=== PATIENT | female | born 1980 | race Caucasian/White ===

== ENCOUNTER 2016-11-14 09:56 | Emergency (ER) | payer MEDICARE, OTHER ==
[2016-11-14 10:04] VITALS: TEMP 97.9; BMI 33.6
[2016-11-14] MEDS ORDERED: NS 1,000 ML IV ONE (10:10)
[2016-11-14] MEDS ORDERED: ONDANSETRON HCL 4 MG/2 ML VIAL IV ONE (10:12)
[2016-11-14] MEDS ORDERED: MORPHINE 4 MG/ML INJECTION IV ONE (10:12)
--- NOTE | 2016-11-14 10:14 | EDPRACDOC ---
- General Information Chief Complaint: Abdominal Pain Stated Complaint: LOWER LT ABD PAIN Time Seen by Provider: 11/14/16 10:06 Mode Of Arrival: Car Home Medications: Home Medications Cetirizine HCl [Zyrtec] 10 mg PO HS 02/17/14 Pantoprazole Sodium [Protonix] 40 mg PO DAILY 02/17/14 Montelukast Sodium [Singulair] 10 mg PO HS 06/06/15 Budesonide/Formoterol Fumarate [Symbicort 80-4.5 Mcg Inhaler] 2 puff INH BID PRN 02/29/16 Fexofenadine HCl [Demetria] 180 mg PO DAILY 02/29/16 Fluticasone Propionate [Flonase] 2 spray TAMMY DAILY PRN 02/29/16 Ketotifen Fumarate [Wal-Zyr] 1 drop OU BID PRN 02/29/16 Alprazolam [Xanax] 1 mg PO BID PRN 10/26/16 BuPROPion (Daily formulation) [Wellbutrin Xl] 150 mg PO DAILY 10/26/16 Prazosin HCl [Minipress] 5 mg PO HS 10/26/16 Hydrocodone/Acetaminophen [Lortab 5-325 mg Tablet] 1 each PO Q4H PRN #15 tablet 11/14/16 Ibuprofen 600 mg PO Q6H PRN #20 tablet 11/14/16 Methylphenidate HCl [Ritalin] 10 mg PO DAILY 11/14/16 Naproxen [Naprosyn] 500 mg PO BID 11/14/16 Allergies/Adverse Reactions: Allergies Allergy/AdvReac Type Severity Reaction Status Date / Time varenicline tartrate Allergy Intermediate Rash-Genera Verified 11/14/16 10:04 [From Chantix] lized amoxicillin trihydrate Allergy Rash-Genera Verified 11/14/16 10:04 [From Augmentin] lized latex Allergy Rash-Genera Verified 11/14/16 10:04 lized potassium clavulanate Allergy Rash-Genera Verified 11/14/16 10:04 [From Augmentin] lized ADHESIVE TAPE Allergy Rash-Locali Uncoded 11/14/16 10:04 zed - History of Present Illness Onset: TODAY HPI: PT HAS A HX OF A LARGE LEFT OVARIAN CYST WHICH WAS DX'D BY US ON 10/26 HERE. SHE DID F/U WITH HER [facility], BUT HAS NOT YET BEEN ABLE TO GET A F/U US. SHE STILL CONTINUES TO HAVE LLQ ABD PAIN. Pain Location: Reports: LLQ Pain Context: Reports: Spontaneous Pain Severity: Moderate Pain Quality: Reports: Sharp Pain Radiation: Reports: No Radiation : No Control Method: Reports: Hysterectomy Adult Abdominal History: Reports: Abdominal Surgery Female Abdominal History: Reports: Abdominal Surgery Modifying Factors: improves with: Nothing Female Associated Signs & Symptoms: Reports: Nausea Oral Intake: Normal Urinary Output: Normal - Treatment Prior to ED Arrival Reported Medications/Treatment JACKERMAN Medications JACKERMAN (Medication/ [id number] Dose/Time) ED Past Medical History - Patient Medical History Respiratory History: Reports: Asthma (CONTROLLED) GI/ History: Reports: Gastroesophageal Reflux Psychological History: Reports: Anxiety. 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 Denies: Diabetes, Cancer - Social Medical History Smoking Status: Heavy tobacco smoker (5 or more cigarettes/day or daily pipe/ cigar) ETOH: None Substance Abuse: None Lives In: Home EDM Review of Systems - Review of Systems ROS Negative Except as Marked: Yes All systems reviewed and were negative except as marked Gastrointestinal: Nausea, Pain - Physical Exam Constitutional: Alert (Awake), No apparent distress Oriented to: Time, Person, Place Last recorded Vital Signs: Last Vital Signs Temp 97.9 F 11/14/16 10:01 Pulse 60 11/14/16 11:08 Resp 16 11/14/16 11:08 BP 108/69 11/14/16 11:08 Pulse Ox 97 11/14/16 11:08 Oxygen Pulse Oxygen Saturation 97 O2 Device Oxygen Flow Rate Fraction of Inspired Oxygen ( FIO2) - HEENT Head: Normal ( normocephalic) Eye Exam: Normal (PERRL, EOMI, Sclera white) Oropharynx: Normal (Pharynx:Moist without exudate,Gums-no swelling) ENT EAC: Normal TMJ: Normal Nose: No Symptoms Reported (septum midline) Neck: Normal (FROM, trachea at midline) - Respiratory/Cardiovascular Respiratory: Normal - CTA (BBS clear to auscultation without adventitious sounds ) Cardiovascular: Normal (RRR without murmur, gallop or rub) - GI Auscultation: Normal (NABS) Palpation: Normal (Soft,No rebound or guarding, non distended) Tenderness: Mild, LLQ Bejarano's Sign: Negative - Musculoskeletal Back: Normal (Non-Tender) Extremities: Normal (Normal tone, Pulses 2+ No cyanosis or edema, FROM) - Integumentary Skin: Normal, Warm, Dry Lymphatics: Normal (no adenopathy) - Neurologic Memory Impaired: Normal Motor Function: Normal (Normal tone, Pulses 2+ No cyanosis or edema, FROM) Cranial Nerve: Normal (CN II-X11 intact sensation, strength 5/5) Cerebellar: Normal Mood Description: Normal Perception: Normal - Re-evaluation Re-evaluation 1 Re-evaluation Time: 13:16 (improved) - Results 11/14/16 10:30 11/14/16 10:30 WBC 8.8 xk/uL (3.8-10.8) 11/14/16 10:30 RBC 4.28 xM/uL (4.20-5.40) 11/14/16 10:30 Hgb 11.6 g/dL (12.0-16.0) L 11/14/16 10:30 Hct 35.7 % (36-47) L 11/14/16 10:30 MCV 83 fL (81-99) 11/14/16 10:30 MCH 27.1 pg (27-32) 11/14/16 10:30 MCHC 32.6 g/dl (33-36) L 11/14/16 10:30 RDW 14.7 % (11.5-14.5) H 11/14/16 10:30 Plt Count 278 xk/uL (130-400) 11/14/16 10:30 MPV 9.2 fL (7.4-10.4) 11/14/16 10:30 Neut % (Auto) 58.2 % (45-76) 11/14/16 10:30 Lymph % (Auto) 24.2 % (17-44) 11/14/16 10:30 Hardee % (Auto) 8.7 % (3-10) 11/14/16 10:30 Eos % (Auto) 7.8 % (0-5) H 11/14/16 10:30 Baso % (Auto) 1.1 % (0-2) 11/14/16 10:30 Absolute Neuts (auto) 5.10 xk/uL (1.7-8.2) 11/14/16 10:30 Absolute Lymphs (auto) 2.11 xk/uL (0.65-4.75) 11/14/16 10:30 Sodium 141 mEq/L (137-146) 11/14/16 10:30 Potassium 4.2 mEq/L (3.5-5.1) 11/14/16 10:30 Chloride 108 mEq/L (98-107) H 11/14/16 10:30 Carbon Dioxide 25 mMOL/L (22-33) 11/14/16 10:30 Anion Gap 12 mEq/L (8-16) 11/14/16 10:30 BUN 14 MG/DL (7-17) 11/14/16 10:30 Creatinine 0.60 MG/DL (0.52-1.04) 11/14/16 10:30 Estimated GFR (MDRD) > 60 mL/min (>=60) 11/14/16 10:30 Glucose 85 MG/DL (70-99) 11/14/16 10:30 Calculated Osmolality 271 MOs/Kg (270-290) 11/14/16 10:30 Calcium 8.6 MG/DL (8.4-10.2) 11/14/16 10:30 Total Bilirubin 0.5 MG/DL (0.2-1.3) 11/14/16 10:30 AST 25 IU/L (14-36) 11/14/16 10:30 ALT 25 IU/L (9-52) 11/14/16 10:30 Alkaline Phosphatase 62 IU/L (38-126) 11/14/16 10:30 Total Protein 7.2 G/DL (6.3-8.2) 11/14/16 10:30 Albumin 4.0 G/DL (3.5-5.0) 11/14/16 10:30 Urine Color Bright yellow 11/14/16 11:05 Urine Clarity Cldy 11/14/16 11:05 Urine pH 8.0 (5.0-8.0) 11/14/16 11:05 Ur Specific Enochs 1.005 (1.003-1.035) 11/14/16 11:05 Urine Protein 1+ (NEG/TRACE) H 11/14/16 11:05 Urine Glucose (UA) Neg (NEGATIVE) 11/14/16 11:05 Urine Ketones Neg (NEGATIVE) 11/14/16 11:05 Urine Occult Blood Neg (NEG/TRACE) 11/14/16 11:05 Urine Nitrite Neg (NEGATIVE) 11/14/16 11:05 Urine Bilirubin Neg (NEGATIVE) 11/14/16 11:05 Urine Urobilinogen 0.2 MG/DL (0-1) 11/14/16 11:05 Ur Leukocyte Esterase Neg (NEGATIVE) 11/14/16 11:05 Urine RBC 0-2 (0-5) 11/14/16 11:05 Urine WBC 2-5 (0-5) 11/14/16 11:05 Ur Epithelial Cells 2+ 11/14/16 11:05 Amorphous Sediment 2+ 11/14/16 11:05 Urine Bacteria 2+ (NEG/FEW) H 11/14/16 11:05 Lab Results 11/14/16 11/14/16 11/14/16 11:05 10:30 10:30 WBC 8.8 RBC 4.28 Hgb 11.6 L Hct 35.7 L MCV 83 MCH 27.1 MCHC 32.6 L RDW 14.7 H Plt Count 278 MPV 9.2 Neut % (Auto) 58.2 Lymph % (Auto) 24.2 Hardee % (Auto) 8.7 Eos % (Auto) 7.8 H Baso % (Auto) 1.1 Absolute Neuts (auto) 5.10 Absolute Lymphs (auto) 2.11 Sodium 141 Potassium 4.2 Chloride 108 H Carbon Dioxide 25 Anion Gap 12 BUN 14 Creatinine 0.60 Estimated GFR (MDRD) > 60 Glucose 85 Calculated Osmolality 271 Calcium 8.6 Total Bilirubin 0.5 AST 25 ALT 25 Alkaline Phosphatase 62 Total Protein 7.2 Albumin 4.0 Urine Color Bright yellow Urine Clarity Cldy Urine pH 8.0 Ur Specific Enochs 1.005 Urine Protein 1+ H Urine Glucose (UA) Neg Urine Ketones Neg Urine Occult Blood Neg Urine Nitrite Neg Urine Bilirubin Neg Urine Urobilinogen 0.2 Ur Leukocyte Esterase Neg Urine RBC 0-2 Urine WBC 2-5 Ur Epithelial Cells 2+ Amorphous Sediment 2+ Urine Bacteria 2+ H - Diagnostic Imaging Abdomen Image interpreted by: Radiologist 11/14/16 13:15 1. No acute abnormality. 2. Minimal increase in size of a minimally complicated left ovarian cyst, compatible with a minimally hemorrhagic cyst, currently measuring 4.7 cm. - Additional Information PT HAS AN O[facility]. SHE IS GIVEN A COPY OF THE US AND THE REPORT TO TAKE TO HER DR. Decision Time to Discharge: 13:16 - Departure Yes I personally saw and evaluated the patient. Disposition: Home Condition: Fair Final Diagnosis: Left ovarian cyst Instructions: Ovarian Cyst (ED) Education/Counseling Given To: Patient Education/Counseling Given Regarding: Diagnosis, Treatment, Follow Up Referrals: Tess Rios MD [Primary Care Provider] - One Week Prescriptions: Hydrocodone/Acetaminophen [Lortab 5-325 mg Tablet] 1 each PO Q4H PRN #15 tablet PRN Reason: Pain Ibuprofen 600 mg PO Q6H PRN #20 tablet PRN Reason: Pain Additional Instructions: f/u with your obgyn at the [facility].
[2016-11-14 10:50] LABS: AUTOMATED BASOPHIL 1.1 % (0-2); AUTOMATED EOSINOPHIL 7.8 % (0-5); AUTOMATED LYMPH 24.2 % (17-44); AUTOMATED MONOCYTE 8.7 % (3-10); AUTOMATED NEUTROPHIL 58.2 % (45-76); MPV 9.2 fL (7.4-10.4)
[2016-11-14 11:03] LABS: BLOOD UREA NITROGEN 14 MG/DL (7-17); CALCIUM 8.6 MG/DL (8.4-10.2); CALCULATED OSMOLALITY 271 MOs/Kg (270-290); CHLORIDE 108 mEq/L (98-107); GLUCOSE 85 MG/DL (70-99); SODIUM LEVEL 141 mEq/L (137-146); TOTAL PROTEIN 7.2 G/DL (6.3-8.2)
[2016-11-14] MEDS ORDERED: HYDROmorphone 1 MG INJECTION IV ONE (11:23)
[2016-11-14 11:30] LABS: LEUKOCYTES/URINE NEG (NEGATIVE); NITRITE/URINE NEG (NEGATIVE); URINE OCCULT BLOOD NEG (NEG/TRACE)
[2016-11-14 11:39] LABS: AMORPHOUS 2+; RBC/URINE 0-2 (0-5)
--- NOTE | 2016-11-14 13:13 | DIRPT ---
CLINICAL DATA: Left pelvic pain. History of a left ovarian cyst. Previous hysterectomy. EXAM: TRANSABDOMINAL AND TRANSVAGINAL ULTRASOUND OF PELVIS TECHNIQUE: Both transabdominal and transvaginal ultrasound examinations of the pelvis were performed. Transabdominal technique was performed for global imaging of the pelvis including uterus, ovaries, adnexal regions, and pelvic cul-de-sac. It was necessary to proceed with endovaginal exam following the transabdominal exam to visualize the ovaries. COMPARISON: 10/26/2016. FINDINGS: Uterus Surgically absent. Right ovary Measurements: 3.6 x 2.7 x 2.2 cm. Multiple follicles measuring up to 2.0 cm in maximum diameter each. Left ovary Measurements: 7.2 x 6.1 x 4.9 cm. 4.7 cm cyst containing low level internal echoes. This previously measured 4.5 cm. Normal internal blood flow within the left ovary. Other findings Small amount of free peritoneal fluid. IMPRESSION: 1. No acute abnormality. 2. Minimal increase in size of a minimally complicated left ovarian cyst, compatible with a minimally hemorrhagic cyst, currently measuring 4.7 cm. 3. The left ovary remains enlarged without evidence of torsion. Electronically Signed By: Gary Estrada M.D. On: 11/14/2016 13:10
[2016-11-14 13:49] VITALS: BP 113/79; PULSE 67
== END 2016-11-14 13:47 | disposition home or self-care (01) ==
LOC: ED 09:56
DX: N83.202 Unspecified ovarian cyst, left side (principal)
CPT/HCPCS: 36415; 76830; 76856; 80053; 81001; 85025; 93975; 96361; 96374; 96375; 99284; J1170; J2270; J2405